=== PATIENT | female | born 1945 | race Caucasian/White ===

== ENCOUNTER 2016-08-27 11:25 | Inpatient (IN) | payer OTHER ==
[~2016-08-27] VITALS: Ht 156.2 cm; Wt 103.7 kg
[~2016-08-27 11:25] MED LIST: B COMPLETE1 EACH PO; BAYER BACK & B1 EACH PO; BISAC-EVAC10 MG PR; CARDIZEM60 MG PO; DIGITEK125 MC2 PO; DIGOXIN125 MCG PO; DOCUSATE SODIU100 MG PO; ELIQUIS5 MG PO; ESTER-C 1,0001 EACH PO; FENOFIBRATE145 M1 PO; FUROSEMIDE40 MG PO; K-DUR20 MEQ PO; LASIX80 MG PO; LUTEIN20 MG PO; MAG/CAL/ZINC PO; METFORMIN HCL1000 MG PO; NOVOLIN,HU100 UNITS/ SC; NOVOLOG MI100 UNIT/4 SC; OMEPRAZOLE40 M1 PO; OXYCODONE HCL5 MG PO; POLYETHYLENE GL17 GM PO; PROAIR HFA8.5 GM IH; QUINAPRIL HCL40 MG PO; SANTYL30 GM TP; SIMVASTATIN10 MG PO; SIMVASTATIN40 MG PO; SINGULAIR10 MG PO; SPIRONOLACTONE50 MG PO; TRAMADOL HCL50 MG PO; VITAMIN D34000 UNIT PO; XARELTO20 MG PO
[2016-08-27 12:42] LABS: HEMATOCRIT 25.4 % (36.0-46.0); MCH 23.6 PG (29.0-34.0); MCHC 30.3 G/DL (30.0-36.0); MCV 77.9 FL (83-99); MEAN PLAT.VOLUME 8.9 uM^3 (9.5-12.4); PLATELET COUNT 350 K/uL (156-360); RBC DIS.WIDTH-CV 21.7 % (11.8-14.6); RBC DIS.WIDTH-SD 58.4 % (39-53); RED BLOOD COUNT 3.26 M/uL (3.80-5.20)
[2016-08-27 12:44] LABS: EOSINOPHIL COUNT 0.1 K/uL (0-0.3); IMMATURE GRANULOCYTE (%) 0.6 % (0.0-0.7); IMMATURE GRANULOCYTE COUNT 0.7 K/uL; LYMPHOCYTE COUNT 1.1 K/uL (1.0-2.8); MONOCYTE (%) 4.2 % (3-12); MONOCYTE COUNT 0.5 K/uL (0-0.8); NEUTROPHIL (%) 84.4 % (45-76); NEUTROPHIL COUNT 9.8 K/uL (1.8-6.4)
[2016-08-27 12:45] LABS: WHITE BLOOD COUNT 11.6 K/uL (4.1-10.2)
[2016-08-27 12:50] LABS: CHLORIDE 96 mEq/L (99-109); SODIUM 133 mEq/L (136-147)
[2016-08-27 12:52] LABS: GLUCOSE 197 mg/dL (70-99); INTER. NORMALIZED RATIO 1.4; PROTHROMBIN TIME 13.9 (9.2-11.2)
[2016-08-27 12:54] LABS: ANION GAP 13 MEQ/L (2-14)
[2016-08-27 12:56] LABS: GFR ESTIMATE (CALCULATED) > 59 mL/min/
[2016-08-27 12:57] LABS: UREA NITROGEN (BUN) 16 mg/dL (9-23)
[2016-08-27] MEDS ORDERED: CUBICIN RF500 MG IV (14:35)
[2016-08-27] MEDS ORDERED: CEFEPIME-D2 GM/50 ML IV (14:36)
[2016-08-27] MEDS ORDERED: NOVOLOG PE100 UNITS/ SC (14:38)
[2016-08-27] MEDS ORDERED: MILK OF MAGN PO (14:41)
[2016-08-27] MEDS ORDERED: PLAVIX75 MG PO (14:42)
[2016-08-27] MEDS ORDERED: ESTER-C 1,0001 EACH PO (14:46)
[2016-08-27] MEDS ORDERED: SENOKOT S,PE1 TABLET PO (14:48)
[2016-08-27] MEDS ORDERED: TIZANIDINE HCL2 MG PO (14:50)
[2016-08-27] MEDS ORDERED: LASIX20 MG PO (14:51)
[2016-08-27] MEDS ORDERED: ELIQUIS2.5 MG PO (14:52)
[2016-08-27] MEDS ORDERED: VITAMIN D-32000 UNI2 PO (14:53)
[2016-08-27] MEDS ORDERED: OXYBUTYNIN CHLOR5 MG PO (14:54)
[2016-08-27] MEDS ORDERED: DAILY VITAMIN1 EAC5 PO (14:54)
[2016-08-27] MEDS ORDERED: FERROUS SULFAT325 MG PO (14:55)
[2016-08-27] MEDS ORDERED: SALINE NASAL SP45 ML BOTH NARES (14:56)
[2016-08-27] MEDS ORDERED: FLORASTOR250 MG PO (14:56)
[2016-08-27] MEDS ORDERED: TRAMADOL HCL50 MG PO (14:59)
[2016-08-27] MEDS ORDERED: SPIRONOLACTONE25 MG PO (15:30)
[2016-08-27] MEDS ORDERED: MIRALAX17 GM PO (15:31)
[2016-08-27 21:58] VITALS: BP 140/60
[2016-08-27 22:20] LABS: HEMATOCRIT 24.6 % (36.0-46.0); MCV 77.8 FL (83-99)
[2016-08-27 22:50] LABS: POINT-OF-CARE METER ID UU13113725
[2016-08-27 23:39] VITALS: BP 138/60
[2016-08-28 03:02] VITALS: BP 127/66
[2016-08-28 04:04] LABS: HEMATOCRIT 23.1 % (36.0-46.0)
[2016-08-28 08:19] VITALS: BP 114/53
[2016-08-28 10:39] LABS: HEMATOCRIT 26.5 % (36.0-46.0); MCV 78.4 FL (83-99)
[2016-08-28 11:51] VITALS: BP 116/56
[2016-08-28 16:05] LABS: HEMATOCRIT 27.1 % (36.0-46.0); MCV 78.8 FL (83-99)
[2016-08-28 16:05] LABS: POINT-OF-CARE METER ID UU13113725
[2016-08-28 16:27] VITALS: BP 114/55
[2016-08-28 20:00] VITALS: BP 158/53
[2016-08-28 22:33] LABS: HEMATOCRIT 23.6 % (36.0-46.0); MCV 78.4 FL (83-99)
[2016-08-29 00:01] VITALS: BP 106/48
[2016-08-29 03:57] VITALS: BP 122/57
[2016-08-29 07:45] VITALS: BP 95/48
[2016-08-29 11:59] VITALS: BP 108/53
[2016-08-29 17:08] VITALS: BP 143/60
[2016-08-29 17:11] LABS: POINT-OF-CARE METER ID UU13113725
[2016-08-29 19:31] VITALS: BP 113/53
[2016-08-30 07:20] VITALS: BP 114/51
[2016-08-30 07:33] LABS: EOSINOPHIL COUNT 0.2 K/uL (0-0.3); HEMATOCRIT 23.3 % (36.0-46.0); IMMATURE GRANULOCYTE (%) 0.9 % (0.0-0.7); IMMATURE GRANULOCYTE COUNT 0.1 K/uL; LYMPHOCYTE COUNT 1.2 K/uL (1.0-2.8); MCH 23.6 PG (29.0-34.0); MCV 78.5 FL (83-99); MEAN PLAT.VOLUME 8.9 uM^3 (9.5-12.4); MONOCYTE (%) 7.7 % (3-12); MONOCYTE COUNT 0.6 K/uL (0-0.8); NEUTROPHIL (%) 72.3 % (45-76); NEUTROPHIL COUNT 5.3 K/uL (1.8-6.4); PLATELET COUNT 311 K/uL (156-360); RBC DIS.WIDTH-SD 62.1 % (39-53); RED BLOOD COUNT 2.97 M/uL (3.80-5.20)
[2016-08-30 07:47] LABS: ANION GAP 9 MEQ/L (2-14); CHLORIDE 102 MEQ/L (99-109); GFR ESTIMATE (CALCULATED) > 59 mL/min/; GLUCOSE 191 mg/dL (70-99); POTASSIUM 3.8 MEQ/L (3.7-5.4); SAMPLE HEMOLYSIS CHECK 0; SAMPLE ICTERIC CHECK 0; SAMPLE LIPEMIA CHECK 0; SODIUM 136 MEQ/L (136-147); UREA NITROGEN (BUN) 14 mg/dL (9-23)
[2016-08-30 07:54] LABS: WHITE BLOOD COUNT 7.4 K/uL (4.1-10.2)
[2016-08-30 11:31] LABS: POINT-OF-CARE METER ID UU13113725
[2016-08-30 15:46] VITALS: BP 127/57
[2016-08-31 00:16] VITALS: BP 131/69
[2016-08-31 07:38] LABS: HEMATOCRIT 25.9 % (36.0-46.0); MCH 23.9 PG (29.0-34.0); MCHC 30.1 G/DL (30.0-36.0); MCV 79.4 FL (83-99); MEAN PLAT.VOLUME 9.1 uM^3 (9.5-12.4); PLATELET COUNT 355 K/uL (156-360); RBC DIS.WIDTH-CV 22.3 % (11.8-14.6); RBC DIS.WIDTH-SD 62.8 % (39-53); RED BLOOD COUNT 3.26 M/uL (3.80-5.20); WHITE BLOOD COUNT 9.2 K/uL (4.1-10.2)
[2016-08-31 07:54] LABS: BASOPHIL COUNT 0.1 K/uL (0-0.1); EOSINOPHIL (%) 2.2 % (0-5); EOSINOPHIL COUNT 0.2 K/uL (0-0.3); IMMATURE GRANULOCYTE (%) 1.8 % (0.0-0.7); IMMATURE GRANULOCYTE COUNT 0.2 K/uL; LYMPHOCYTE COUNT 1.4 K/uL (1.0-2.8); MONOCYTE (%) 4.9 % (3-12); MONOCYTE COUNT 0.5 K/uL (0-0.8); NEUTROPHIL (%) 75.7 % (45-76)
[2016-08-31 07:56] VITALS: BP 122/65
[2016-08-31 11:41] LABS: POINT-OF-CARE METER ID UU13113725
[2016-08-31 15:34] VITALS: BP 124/66
[2016-08-31 21:00] VITALS: BP 119/56
[2016-08-31 23:00] VITALS: BP 101/51
[2016-08-31 23:03] VITALS: BP 101/51
[2016-09-01] VITALS (7 sets, daily range): BP systolic 106–125; BP diastolic 50–74
[2016-09-02 03:29] VITALS: BP 96/53
[2016-09-02 07:24] VITALS: BP 159/84
[2016-09-02 07:50] LABS: HEMATOCRIT 27.9 % (36.0-46.0); MCH 23.3 PG (29.0-34.0); MCHC 28.7 G/DL (30.0-36.0); MCV 81.1 FL (83-99); MEAN PLAT.VOLUME 8.7 uM^3 (9.5-12.4); PLATELET COUNT 342 K/uL (156-360); RBC DIS.WIDTH-CV 23.5 % (11.8-14.6); RBC DIS.WIDTH-SD 66.3 % (39-53); RED BLOOD COUNT 3.44 M/uL (3.80-5.20); WHITE BLOOD COUNT 7.5 K/uL (4.1-10.2)
[2016-09-02 07:56] LABS: EOSINOPHIL (%) 2.4 % (0-5); EOSINOPHIL COUNT 0.2 K/uL (0-0.3); IMMATURE GRANULOCYTE (%) 1.9 % (0.0-0.7); IMMATURE GRANULOCYTE COUNT 0.1 K/uL; LYMPHOCYTE COUNT 1.3 K/uL (1.0-2.8); MONOCYTE (%) 6.4 % (3-12); MONOCYTE COUNT 0.5 K/uL (0-0.8); NEUTROPHIL (%) 72.1 % (45-76); NEUTROPHIL COUNT 5.4 K/uL (1.8-6.4)
[2016-09-02 12:05] VITALS: BP 126/68
[2016-09-02 15:15] VITALS: BP 133/71
[2016-09-02 16:52] LABS: POINT-OF-CARE METER ID UU13113725
[2016-09-02 17:29] LABS: POINT-OF-CARE METER ID UU13113725
[2016-09-03] VITALS: BP 130/55
[2016-09-03 10:23] VITALS: BP 104/62
[2016-09-03 11:55] LABS: POINT-OF-CARE METER ID UU13113725
[2016-09-03 18:55] VITALS: BP 135/60
[2016-09-04 00:01] VITALS: BP 96/51
[2016-09-04 07:30] VITALS: BP 133/70
[2016-09-04] MEDS ORDERED: LEVEMIR100 UNIT/2 SC (08:44)
[2016-09-04] MEDS ORDERED: CARDIZEM CD,CA240 MG PO (08:45)
[2016-09-04 08:54] VITALS: BP 110/78
== END 2016-09-04 10:02 | DRG 812 ==
LOC: EME 11:25 → 5EAST 17:02 → EDOF 17:02 → 5EAST 21:31
PROVIDERS: Emergency Medicine; Internal Medicine
PROC: 0DB68ZX Excision of Stomach, Via Natural or Artificial Opening Endoscopic, Diagnostic (ICD-10-PCS; principal; 2016-08-29)
DX: D64.9 Anemia, unspecified (principal); K92.2 Gastrointestinal hemorrhage, unspecified; L97.829 Non-pressure chronic ulcer of other part of left lower leg with unspecified severity; L97.429 Non-pressure chronic ulcer of left heel and midfoot with unspecified severity; I50.30 Unspecified diastolic (congestive) heart failure; Z68.43 Body mass index [BMI] 50.0-59.9, adult; K20.9 Esophagitis, unspecified; K29.40 Chronic atrophic gastritis without bleeding; L25.9 Unspecified contact dermatitis, unspecified cause; L89.150 Pressure ulcer of sacral region, unstageable; I70.248 Atherosclerosis of native arteries of left leg with ulceration of other part of lower leg; I70.244 Atherosclerosis of native arteries of left leg with ulceration of heel and midfoot; I70.221 Atherosclerosis of native arteries of extremities with rest pain, right leg; I11.0 Hypertensive heart disease with heart failure; I48.2 Chronic atrial fibrillation; J45.909 Unspecified asthma, uncomplicated; E78.5 Hyperlipidemia, unspecified; I25.10 Atherosclerotic heart disease of native coronary artery without angina pectoris; E11.9 Type 2 diabetes mellitus without complications; I87.2 Venous insufficiency (chronic) (peripheral); E66.01 Morbid (severe) obesity due to excess calories; Z79.01 Long term (current) use of anticoagulants; Z88.0 Allergy status to penicillin; Z88.4 Allergy status to anesthetic agent; Z88.6 Allergy status to analgesic agent; Z87.891 Personal history of nicotine dependence; Z95.820 Peripheral vascular angioplasty status with implants and grafts; Z86.718 Personal history of other venous thrombosis and embolism
CPT/HCPCS: 71020; 80048; 82948; 85014; 85018; 85025; 85610; 86850; 86900; 86901; 87070; 87075; 87106; 87205; 88305; 88342 TC; 93005; 97530 GP; 99202; 99281; 99284; C9113; J0692; J1756; J1815; J3370; J7030; J7050

== ENCOUNTER 2016-09-05 13:20 | Day surgery (SDC) | payer OTHER ==
[~2016-09-05 13:20] MED LIST changes: +CARDIZEM CD,CA240 MG PO; +CEFEPIME-D2 GM/50 ML IV; +CUBICIN RF500 MG IV; +DAILY VITAMIN1 EAC5 PO; +ELIQUIS2.5 MG PO; +FERROUS SULFAT325 MG PO; +FLORASTOR250 MG PO; +LASIX20 MG PO; +LEVEMIR100 UNIT/2 SC; +MILK OF MAGN PO; +MIRALAX17 GM PO; +NOVOLOG PE100 UNITS/ SC; +OXYBUTYNIN CHLOR5 MG PO; +PLAVIX75 MG PO; +SALINE NASAL SP45 ML BOTH NARES; +SENOKOT S,PE1 TABLET PO; +SPIRONOLACTONE25 MG PO; +TIZANIDINE HCL2 MG PO; +VITAMIN D-32000 UNI2 PO
[2016-09-05 14:03] LABS: POINT-OF-CARE METER ID UU13113696
[2016-09-05 14:53] LABS: METH RESISTANT S AUREUS PCR NEGATIVE (NEGATIVE)
[2016-09-05 15:06] LABS: PROBE CHECK PASS; SPECIMEN PROCESSING CONTROL PASS
== END 2016-09-05 18:05 ==
LOC: CATH 13:20
PROVIDERS: Surgery
DX: I70.462 Atherosclerosis of autologous vein bypass graft(s) of the extremities with gangrene, left leg (principal); I70.92 Chronic total occlusion of artery of the extremities
CPT/HCPCS: 82948; 87641; C1725; C1760; C1769; C1887; C1894; J1644; J2250; J3010; S0020

== ENCOUNTER 2016-10-18 21:25 | Inpatient (IN) | payer OTHER ==
[~2016-10-18] VITALS: Ht 154.9 cm; Wt 130.8 kg
[2016-10-18 22:26] LABS: EOSINOPHIL (%) 1.2 % (0-5); EOSINOPHIL COUNT 0.1 K/uL (0-0.3); HEMATOCRIT 27.9 % (36.0-46.0); IMMATURE GRANULOCYTE (%) 0.6 % (0.0-0.7); INSTRUMENT ABS NEUTROPHIL CT 3.8 K/uL; LYMPHOCYTE COUNT 0.8 K/uL (1.0-2.8); MCH 25.1 PG (29.0-34.0); MCHC 31.2 G/DL (30.0-36.0); MEAN PLAT.VOLUME 8.7 uM^3 (9.5-12.4); MONOCYTE (%) 8.8 % (3-12); MONOCYTE COUNT 0.5 K/uL (0-0.8); NEUTROPHIL (%) 73.4 % (45-76); NEUTROPHIL COUNT 3.8 K/uL (1.8-6.4); PLATELET COUNT 300 K/uL (156-360); RBC DIS.WIDTH-CV 18.5 % (11.8-14.6); RBC DIS.WIDTH-SD 53.9 % (39-53); RED BLOOD COUNT 3.47 M/uL (3.80-5.20); WHITE BLOOD COUNT 5.2 K/uL (4.1-10.2)
[2016-10-18 22:27] LABS: MCV 80.4 FL (83-99)
[2016-10-18 22:55] LABS: CHLORIDE 87 mEq/L (99-109); POTASSIUM 5.3 mEq/L (3.7-5.4); SODIUM 124 mEq/L (136-147)
[2016-10-18 22:57] LABS: GLUCOSE 73 mg/dL (70-99)
[2016-10-18 22:59] LABS: ANION GAP 18 MEQ/L (2-14)
[2016-10-18 23:01] LABS: GFR ESTIMATE (CALCULATED) 9 mL/min/
[2016-10-18 23:02] LABS: UREA NITROGEN (BUN) 52 mg/dL (9-23)
[2016-10-18 23:57] LABS: ADD MIUA? YES; BILIRUBIN NEGATIVE; BLOOD SMALL; GLUCOSE (STRIP) NEGATIVE; KETONES NEGATIVE; LEUKOCYTES LARGE; NITRITE NEGATIVE; PROTEIN (STRIP) 100; UROBILINOGEN 0.2 MG/DL (0.2-1.0)
[2016-10-18 23:59] LABS: COLOR YELLOW ((YELLOW))
[2016-10-19] VITALS (7 sets, daily range): BP systolic 117–129; BP diastolic 53–79
[2016-10-19] MEDS ORDERED: LEVEMIR FL100 UNIT/1 SC (00:21)
[2016-10-19 00:25] LABS: EPITHELIAL CELLS 2+ /HPF; MUCUS NONE SEEN /LPF; WHITE BLOOD CELLS TNTC /HPF (0-5)
[2016-10-19 00:26] LABS: BACTERIA 2+ /HPF; CASTS PRESENT /LPF; UCUL ADDED? YES
[2016-10-19 00:27] LABS: COARSE GRANULAR CASTS 0-5 /LPF; CRYSTALS NONE SEEN; WAXY CASTS RARE /LPF
[2016-10-19] MEDS ORDERED: POTASSIUM CHLO20 ME2 PO (00:29)
[2016-10-19] MEDS ORDERED: CARDIZEM CD,CA240 MG PO (00:31)
[2016-10-19] MEDS ORDERED: LUTEIN20 MG PO (00:42)
[2016-10-19] MEDS ORDERED: REQUIP1 MG PO (00:50)
[2016-10-19] MEDS ORDERED: STOOL SOFTENER100 M1 PO (00:51)
[2016-10-19] MEDS ORDERED: ZANAFLEX2 MG PO (00:53)
[2016-10-19] MEDS ORDERED: VITRON-C TABLE1 EACH PO (00:56)
[2016-10-19] MEDS ORDERED: PROMETHAZINE HC25 M1 PO (01:02)
[2016-10-19 06:43] LABS: ANION GAP 20 MEQ/L (2-14); CHLORIDE 85 MEQ/L (99-109); GFR ESTIMATE (CALCULATED) 9 mL/min/; GLUCOSE 49 mg/dL (70-99); POTASSIUM 5.6 MEQ/L (3.7-5.4); SAMPLE HEMOLYSIS CHECK 0; SAMPLE ICTERIC CHECK 0; SAMPLE LIPEMIA CHECK 0; SODIUM 125 MEQ/L (136-147); UREA NITROGEN (BUN) 50 mg/dL (9-23)
[2016-10-19 11:52] LABS: POINT-OF-CARE METER ID UU13113725
[2016-10-19 16:33] LABS: POINT-OF-CARE METER ID UU13113725
[2016-10-20] VITALS (8 sets, daily range): BP systolic 98–148; BP diastolic 53–72
[2016-10-20 06:25] LABS: EOSINOPHIL (%) 2.1 % (0-5); EOSINOPHIL COUNT 0.1 K/uL (0-0.3); HEMATOCRIT 27.6 % (36.0-46.0); IMMATURE GRANULOCYTE (%) 0.6 % (0.0-0.7); INSTRUMENT ABS NEUTROPHIL CT 3.6 K/uL; MCH 24.6 PG (29.0-34.0); MCHC 31.5 G/DL (30.0-36.0); MCV 78.2 FL (83-99); MONOCYTE (%) 10.5 % (3-12); MONOCYTE COUNT 0.6 K/uL (0-0.8); NEUTROPHIL COUNT 3.6 K/uL (1.8-6.4); PLATELET COUNT 324 K/uL (156-360); RBC DIS.WIDTH-CV 18.6 % (11.8-14.6); RED BLOOD COUNT 3.53 M/uL (3.80-5.20); WHITE BLOOD COUNT 5.3 K/uL (4.1-10.2)
[2016-10-20 07:59] LABS: ANION GAP 16 MEQ/L (2-14); CHLORIDE 87 MEQ/L (99-109); GFR ESTIMATE (CALCULATED) 9 mL/min/; MAGNESIUM 1.5 mg/dl (1.3-2.7); POTASSIUM 4.9 MEQ/L (3.7-5.4); SAMPLE HEMOLYSIS CHECK 0; SAMPLE ICTERIC CHECK 0; SAMPLE LIPEMIA CHECK 0; SODIUM 125 MEQ/L (136-147); UREA NITROGEN (BUN) 53 mg/dL (9-23)
[2016-10-20 08:00] LABS: GLUCOSE 103 mg/dL (70-99)
[2016-10-20 16:19] LABS: POINT-OF-CARE METER ID UU13113725
[2016-10-21 05:36] LABS: POINT-OF-CARE METER ID UU13113725
[2016-10-21 06:15] LABS: EOSINOPHIL (%) 2.3 % (0-5); EOSINOPHIL COUNT 0.1 K/uL (0-0.3); HEMATOCRIT 27.2 % (36.0-46.0); IMMATURE GRANULOCYTE (%) 0.4 % (0.0-0.7); INSTRUMENT ABS NEUTROPHIL CT 3.6 K/uL; LYMPHOCYTE COUNT 0.9 K/uL (1.0-2.8); MCH 24.9 PG (29.0-34.0); MCHC 31.6 G/DL (30.0-36.0); MCV 78.8 FL (83-99); MEAN PLAT.VOLUME 9.4 uM^3 (9.5-12.4); MONOCYTE (%) 10.4 % (3-12); MONOCYTE COUNT 0.5 K/uL (0-0.8); NEUTROPHIL (%) 69.5 % (45-76); NEUTROPHIL COUNT 3.6 K/uL (1.8-6.4); PLATELET COUNT 310 K/uL (156-360); RBC DIS.WIDTH-CV 18.6 % (11.8-14.6); RBC DIS.WIDTH-SD 52.9 % (39-53); RED BLOOD COUNT 3.45 M/uL (3.80-5.20); WHITE BLOOD COUNT 5.1 K/uL (4.1-10.2)
[2016-10-21 06:41] LABS: ANION GAP 15 MEQ/L (2-14); CHLORIDE 90 MEQ/L (99-109); GFR ESTIMATE (CALCULATED) 10 mL/min/; GLUCOSE 145 mg/dL (70-99); POTASSIUM 3.8 MEQ/L (3.7-5.4); SAMPLE HEMOLYSIS CHECK 0; SAMPLE ICTERIC CHECK 0; SAMPLE LIPEMIA CHECK 0; SODIUM 128 MEQ/L (136-147); UREA NITROGEN (BUN) 52 mg/dL (9-23)
[2016-10-21 08:08] VITALS: BP 136/70
[2016-10-21 11:08] LABS: POINT-OF-CARE METER ID UU13113725
[2016-10-21 11:10] VITALS: BP 146/64
[2016-10-21 11:55] VITALS: BP 126/58
[2016-10-21 15:20] VITALS: BP 134/70
[2016-10-21 15:51] LABS: POINT-OF-CARE METER ID UU13113725
[2016-10-21 19:33] VITALS: BP 136/61
[2016-10-21 20:55] LABS: POINT-OF-CARE METER ID UU13113725
[2016-10-21 23:04] VITALS: BP 126/58
[2016-10-22 03:51] VITALS: BP 110/54
[2016-10-22 06:04] LABS: POINT-OF-CARE METER ID UU13113725
[2016-10-22 06:47] VITALS: BP 121/57
[2016-10-22 07:16] LABS: ANION GAP 16 MEQ/L (2-14); CHLORIDE 91 MEQ/L (99-109); GFR ESTIMATE (CALCULATED) 11 mL/min/; GLUCOSE 140 mg/dL (70-99); POTASSIUM 3.6 MEQ/L (3.7-5.4); SAMPLE HEMOLYSIS CHECK 0; SAMPLE ICTERIC CHECK 0; SAMPLE LIPEMIA CHECK 0; SODIUM 132 MEQ/L (136-147); UREA NITROGEN (BUN) 50 mg/dL (9-23)
[2016-10-22 10:42] VITALS: BP 135/64
[2016-10-22 11:21] LABS: POINT-OF-CARE METER ID UU13113725
[2016-10-22 16:47] VITALS: BP 134/70
[2016-10-22 20:55] LABS: POINT-OF-CARE METER ID UU13113725
[2016-10-22 22:29] VITALS: BP 131/66
[2016-10-23 06:42] LABS: ANION GAP 14 MEQ/L (2-14); CHLORIDE 95 MEQ/L (99-109); GFR ESTIMATE (CALCULATED) 13 mL/min/; GLUCOSE 137 mg/dL (70-99); MAGNESIUM 1.5 mg/dl (1.3-2.7); POTASSIUM 3.4 MEQ/L (3.7-5.4); SAMPLE HEMOLYSIS CHECK 0; SAMPLE ICTERIC CHECK 0; SAMPLE LIPEMIA CHECK 0; SODIUM 135 MEQ/L (136-147); UREA NITROGEN (BUN) 47 mg/dL (9-23)
[2016-10-23 07:54] VITALS: BP 118/62
[2016-10-23 16:05] LABS: POINT-OF-CARE METER ID UU13113725
[2016-10-23 16:29] VITALS: BP 122/66
[2016-10-23 19:43] VITALS: BP 126/66
[2016-10-23 21:32] LABS: POINT-OF-CARE METER ID UU13113725
[2016-10-24 00:51] VITALS: BP 126/58
[2016-10-24 07:27] LABS: ANION GAP 12 MEQ/L (2-14); CHLORIDE 96 MEQ/L (99-109); GFR ESTIMATE (CALCULATED) 18 mL/min/; GLUCOSE 115 mg/dL (70-99); MAGNESIUM 1.4 mg/dl (1.3-2.7); POTASSIUM 3.4 MEQ/L (3.7-5.4); SAMPLE HEMOLYSIS CHECK 0; SAMPLE ICTERIC CHECK 0; SAMPLE LIPEMIA CHECK 0; SODIUM 135 MEQ/L (136-147); UREA NITROGEN (BUN) 43 mg/dL (9-23)
[2016-10-24 08:17] VITALS: BP 116/60
[2016-10-24 11:29] LABS: POINT-OF-CARE METER ID UU13113725
[2016-10-24 15:28] VITALS: BP 122/59
[2016-10-24 16:14] LABS: POINT-OF-CARE METER ID UU13113725
[2016-10-24 21:44] LABS: POINT-OF-CARE METER ID UU13113725
[2016-10-24 23:45] VITALS: BP 122/53
[2016-10-25 06:06] LABS: EOSINOPHIL (%) 3.6 % (0-5); EOSINOPHIL COUNT 0.2 K/uL (0-0.3); HEMATOCRIT 26.3 % (36.0-46.0); IMMATURE GRANULOCYTE (%) 0.7 % (0.0-0.7); INSTRUMENT ABS NEUTROPHIL CT 3.8 K/uL; LYMPHOCYTE COUNT 0.9 K/uL (1.0-2.8); MCH 24.6 PG (29.0-34.0); MCHC 30.8 G/DL (30.0-36.0); MCV 79.9 FL (83-99); MEAN PLAT.VOLUME 9.3 uM^3 (9.5-12.4); MONOCYTE (%) 9.5 % (3-12); MONOCYTE COUNT 0.5 K/uL (0-0.8); NEUTROPHIL (%) 69.7 % (45-76); NEUTROPHIL COUNT 3.8 K/uL (1.8-6.4); PLATELET COUNT 290 K/uL (156-360); RBC DIS.WIDTH-CV 18.6 % (11.8-14.6); RBC DIS.WIDTH-SD 54.3 % (39-53); RED BLOOD COUNT 3.29 M/uL (3.80-5.20); WHITE BLOOD COUNT 5.5 K/uL (4.1-10.2)
[2016-10-25 06:29] LABS: ANION GAP 11 MEQ/L (2-14); CHLORIDE 95 MEQ/L (99-109); GFR ESTIMATE (CALCULATED) 21 mL/min/; GLUCOSE 141 mg/dL (70-99); IRON 19 MCG/DL (35-150); POTASSIUM 3.4 MEQ/L (3.7-5.4); SAMPLE HEMOLYSIS CHECK 0; SAMPLE ICTERIC CHECK 0; SAMPLE LIPEMIA CHECK 0; SODIUM 133 MEQ/L (136-147); UREA NITROGEN (BUN) 39 mg/dL (9-23)
[2016-10-25 07:02] LABS: POINT-OF-CARE METER ID UU13113725
[2016-10-25 07:35] VITALS: BP 133/65
[2016-10-25 11:45] LABS: POINT-OF-CARE METER ID UU13113725
[2016-10-25 15:30] VITALS: BP 120/60
[2016-10-25 16:48] LABS: POINT-OF-CARE METER ID UU13113725
[2016-10-25 21:55] LABS: POINT-OF-CARE METER ID UU13113725
[2016-10-25 23:03] VITALS: BP 127/69
[2016-10-26 06:51] LABS: POINT-OF-CARE METER ID UU13113725
[2016-10-26 07:05] LABS: ANION GAP 10 MEQ/L (2-14); CHLORIDE 96 MEQ/L (99-109); GFR ESTIMATE (CALCULATED) 29 mL/min/; GLUCOSE 140 mg/dL (70-99); POTASSIUM 3.3 MEQ/L (3.7-5.4); SAMPLE HEMOLYSIS CHECK 0; SAMPLE ICTERIC CHECK 0; SAMPLE LIPEMIA CHECK 0; SODIUM 133 MEQ/L (136-147); UREA NITROGEN (BUN) 35 mg/dL (9-23)
[2016-10-26 09:18] VITALS: BP 130/66
[2016-10-26 11:49] VITALS: BP 117/57
[2016-10-26 11:53] LABS: POINT-OF-CARE METER ID UU13113725
[2016-10-26 16:53] LABS: POINT-OF-CARE METER ID UU13113725
[2016-10-26 16:54] VITALS: BP 142/74
[2016-10-26 20:44] LABS: POINT-OF-CARE METER ID UU13113725
[2016-10-26 23:09] VITALS: BP 118/56
[2016-10-27 05:55] LABS: POINT-OF-CARE METER ID UU13113725
[2016-10-27 06:25] LABS: ANION GAP 10 MEQ/L (2-14); CHLORIDE 99 MEQ/L (99-109); GFR ESTIMATE (CALCULATED) 36 mL/min/; GLUCOSE 188 mg/dL (70-99); POTASSIUM 3.4 MEQ/L (3.7-5.4); SAMPLE HEMOLYSIS CHECK 0; SAMPLE ICTERIC CHECK 0; SAMPLE LIPEMIA CHECK 0; SODIUM 137 MEQ/L (136-147); UREA NITROGEN (BUN) 32 mg/dL (9-23)
[2016-10-27 07:09] VITALS: BP 119/79
[2016-10-27 11:24] VITALS: BP 124/81
[2016-10-27 11:30] LABS: POINT-OF-CARE METER ID UU13113725
[2016-10-27 15:52] VITALS: BP 126/82
[2016-10-27 23:41] VITALS: BP 124/58
[2016-10-28 05:57] LABS: POINT-OF-CARE METER ID UU13113725
[2016-10-28 06:24] LABS: EOSINOPHIL (%) 3.3 % (0-5); EOSINOPHIL COUNT 0.2 K/uL (0-0.3); IMMATURE GRANULOCYTE (%) 0.5 % (0.0-0.7); INSTRUMENT ABS NEUTROPHIL CT 4.2 K/uL; LYMPHOCYTE COUNT 0.9 K/uL (1.0-2.8); MCH 24.7 PG (29.0-34.0); MCV 82.2 FL (83-99); MEAN PLAT.VOLUME 9.1 uM^3 (9.5-12.4); MONOCYTE (%) 10.7 % (3-12); MONOCYTE COUNT 0.7 K/uL (0-0.8); NEUTROPHIL COUNT 4.2 K/uL (1.8-6.4); PLATELET COUNT 266 K/uL (156-360); RBC DIS.WIDTH-CV 18.7 % (11.8-14.6); RBC DIS.WIDTH-SD 56.5 % (39-53); RED BLOOD COUNT 3.04 M/uL (3.80-5.20); WHITE BLOOD COUNT 6.1 K/uL (4.1-10.2)
[2016-10-28 06:48] LABS: ANION GAP 9 MEQ/L (2-14); CHLORIDE 100 MEQ/L (99-109); GFR ESTIMATE (CALCULATED) 43 mL/min/; GLUCOSE 158 mg/dL (70-99); POTASSIUM 3.7 MEQ/L (3.7-5.4); SAMPLE HEMOLYSIS CHECK 0; SAMPLE ICTERIC CHECK 0; SAMPLE LIPEMIA CHECK 0; SODIUM 137 MEQ/L (136-147); UREA NITROGEN (BUN) 27 mg/dL (9-23)
[2016-10-28 08:16] VITALS: BP 132/66
[2016-10-28 11:17] LABS: POINT-OF-CARE METER ID UU13113725
[2016-10-28] MEDS ORDERED: LEVEMIR FL100 UNIT/1 SC (15:48)
[2016-10-28 16:31] LABS: POINT-OF-CARE METER ID UU13113725
[2016-10-28 16:54] VITALS: BP 127/56
== END 2016-10-28 18:35 | DRG 683 ==
LOC: EME 21:25 → EDOF 10-19 00:40 → 5EAST 10-19 00:40
PROVIDERS: Emergency Medicine; Internal Medicine; Internal Medicine Nephrology
DX: N17.0 Acute kidney failure with tubular necrosis (principal); Z68.43 Body mass index [BMI] 50.0-59.9, adult; N30.00 Acute cystitis without hematuria; E87.1 Hypo-osmolality and hyponatremia; I50.30 Unspecified diastolic (congestive) heart failure; I13.0 Hypertensive heart and chronic kidney disease with heart failure and stage 1 through stage 4 chronic kidney disease, or unspecified chronic kidney disease; E11.622 Type 2 diabetes mellitus with other skin ulcer; I25.10 Atherosclerotic heart disease of native coronary artery without angina pectoris; E87.5 Hyperkalemia; E83.51 Hypocalcemia; E87.8 Other disorders of electrolyte and fluid balance, not elsewhere classified; I48.2 Chronic atrial fibrillation; F32.9 Major depressive disorder, single episode, unspecified; I25.2 Old myocardial infarction; E11.22 Type 2 diabetes mellitus with diabetic chronic kidney disease; E66.01 Morbid (severe) obesity due to excess calories; L97.529 Non-pressure chronic ulcer of other part of left foot with unspecified severity; I77.1 Stricture of artery; I73.9 Peripheral vascular disease, unspecified; K21.9 Gastro-esophageal reflux disease without esophagitis; N18.3 Chronic kidney disease, stage 3 (moderate); Z88.0 Allergy status to penicillin; F41.9 Anxiety disorder, unspecified; L89.302 Pressure ulcer of unspecified buttock, stage 2; D63.8 Anemia in other chronic diseases classified elsewhere; B96.1 Klebsiella pneumoniae [K. pneumoniae] as the cause of diseases classified elsewhere; R33.9 Retention of urine, unspecified; Z88.8 Allergy status to other drugs, medicaments and biological substances; Z87.891 Personal history of nicotine dependence; Z53.20 Procedure and treatment not carried out because of patient's decision for unspecified reasons
CPT/HCPCS: 76770; 80048; 80048 91; 80069; 81003; 82533 91; 82948; 83540; 83735; 83935; 84100; 84300; 84466; 85025; 87077; 87086; 87186; 93005; 99202; 99281; 99285; J0696; J1644; J1756; J1815; J2405; J7030; J7050

== ENCOUNTER 2016-11-14 13:28 | Emergency (ER) | payer OTHER ==
[~2016-11-14] VITALS: Ht 154.9 cm; Wt 143.0 kg
[~2016-11-14 13:28] MED LIST changes: +LEVEMIR FL100 UNIT/1 SC; +POTASSIUM CHLO20 ME2 PO; +PROMETHAZINE HC25 M1 PO; +REQUIP1 MG PO; +STOOL SOFTENER100 M1 PO; +VITRON-C TABLE1 EACH PO; +ZANAFLEX2 MG PO
[2016-11-14 14:07] LABS: EOSINOPHIL (%) 2.5 % (0-5); EOSINOPHIL COUNT 0.2 K/uL (0-0.3); HEMATOCRIT 34.1 % (36.0-46.0); IMMATURE GRANULOCYTE (%) 0.5 % (0.0-0.7); INSTRUMENT ABS NEUTROPHIL CT 4.7 K/uL; LYMPHOCYTE COUNT 0.8 K/uL (1.0-2.8); MCH 24.8 PG (29.0-34.0); MCHC 29.6 G/DL (30.0-36.0); MCV 83.6 FL (83-99); MEAN PLAT.VOLUME 9.2 uM^3 (9.5-12.4); MONOCYTE (%) 6.4 % (3-12); MONOCYTE COUNT 0.4 K/uL (0-0.8); NEUTROPHIL (%) 76.4 % (45-76); NEUTROPHIL COUNT 4.7 K/uL (1.8-6.4); PLATELET COUNT 353 K/uL (156-360); RBC DIS.WIDTH-CV 18.9 % (11.8-14.6); RBC DIS.WIDTH-SD 57.5 % (39-53); RED BLOOD COUNT 4.08 M/uL (3.80-5.20); WHITE BLOOD COUNT 6.1 K/uL (4.1-10.2)
[2016-11-14 14:12] LABS: CHLORIDE 107 mEq/L (99-109); POTASSIUM 4.2 mEq/L (3.7-5.4); SODIUM 140 mEq/L (136-147)
[2016-11-14 14:14] LABS: GLUCOSE 155 mg/dL (70-99)
[2016-11-14 14:15] LABS: ANION GAP 9 MEQ/L (2-14)
[2016-11-14 14:16] LABS: TOTAL BILIRUBIN 0.4 mg/dL (0.0-1.0)
[2016-11-14 14:18] LABS: ALKALINE PHOSPHATASE 88 IU/L (3-129); GFR ESTIMATE (CALCULATED) 52 mL/min/
[2016-11-14 14:19] LABS: UREA NITROGEN (BUN) 18 mg/dL (9-23)
[2016-11-14 14:21] LABS: LIPASE 66 U/L (1.0-51.0)
[2016-11-14 14:27] LABS: TROP-I INTERPRETATION NEGATIVE; TROPONIN-I 0.02 ng/mL (0.0-0.30)
[2016-11-14 14:28] LABS: DIGOXIN 0.5 ng/mL (0.8-2.0)
[2016-11-14 16:20] VITALS: BP 111/75
== END 2016-11-14 16:58 | disposition home or self-care (01) ==
LOC: EME 13:28
PROVIDERS: Emergency Medicine
DX: R60.9 Edema, unspecified (principal); E66.01 Morbid (severe) obesity due to excess calories; Z68.43 Body mass index [BMI] 50.0-59.9, adult; E11.65 Type 2 diabetes mellitus with hyperglycemia; Z79.4 Long term (current) use of insulin; I10 Essential (primary) hypertension; I25.2 Old myocardial infarction; J45.909 Unspecified asthma, uncomplicated; Z87.891 Personal history of nicotine dependence
CPT/HCPCS: 71010; 80053; 80162; 81003; 83605; 83690; 84484; 85025; 93005; 99281; 99285; J1940